=== PATIENT | female | born 1980 | race Caucasian/White ===

== ENCOUNTER 2017-01-14 20:26 | Emergency (ER) | payer OTHER ==
[~2017-01-14] VITALS: Ht 162.6 cm; Wt 60.0 kg
[~2017-01-14 20:26] MED LIST: ADVAIR 250/501 DISK; AMITRIPTYLINE H10 MG PO; ANTI-DIARRHEAL2 M2 PO; BACLOFEN10 MG PO; BACLOFEN20 MG PO; BACTRIM,SEPT1 TABLET PO; BENZONATATE200 MG PO; BETASERON0.3 MG IM; BETHANECHOL CHL10 MG PO; BETHANECHOL CHL25 MG PO; CELEXA10 MG PO; CITALOPRAM HBR10 MG PO; CLINDAMYCIN HC300 MG PO; CYCLOBENZAPRINE10 MG PO; DELSYM30 MG/5 M1 PO; DEPAKENE250 MG/5 M PO; DICYCLOMINE HCL20 MG PO; DITROPAN5 MG PO; DOXYCYCLINE HY100 MG PO; ELAVIL10 MG PO; FLAGYL500 MG PO; FUROSEMIDE40 MG PO; HYDROXYZINE HCL50 MG PO; IBUPROFEN PO; IBUPROFEN800 MG; K-DUR20 MEQ PO; K-SOL20 MEQ/15 PO; KEPPRA100 MG/1 M PO; KEPPRA500 MG PO; KEPPRA750 MG PO; LEVETIRACE100 MG/1 M PO; LEVETIRACETAM250 MG PO; LEVETIRACETAM500 MG PO; LEVETIRACETAM750 MG PO; LYRICA25 MG PO; LYRICA50 MG PO; LYRICA75 MG PO; MOTRIN800 MG PO; NAPROSYN500 MG PO; NAPROXEN500 MG PO; NOHOMEMEDS; NORCO 5/3251 TABLET PO; OMEPRAZOLE20 M2; OMEPRAZOLE20 M2 PO; OMEPRAZOLE40 M1 PO; OSTEO BI-FLEX1 EAC1 PO; OSTEO BI-FLEX1 EAC2 PO; PERCOCET 5/31 TABLET PO; PHENAZOPYRIDIN100 MG PO; POTASSIUM20 MEQ/11 PO; PREDNISONE20 MG; PRILOSEC OTC20 MG PO; PRILOSEC20 MG PO; PROAIR HFA8.5 GM; PROAIR HFA8.5 GM IH; SERTRALINE HCL100 MG PO; SERTRALINE HCL50 MG PO; TECFIDERA240 MG PO; TESSALON PERLE100 MG PO; TOPAMAX25 MG PO; TOPIRAMATE25 MG PO; TRAMADOL HCL50 MG PO; TRAZODONE HCL50 MG PO; ULTRAM50 MG PO; UNABLEOBTAIN; URECHOLINE25 MG PO; VALPROIC A250 MG/5 M PO; VENTOLIN HFA18 GM IH; ZITHROMAX Z-PA250 MG PO; ZOFRAN4 MG PO; ZOLOFT100 MG PO
[2017-01-14 23:26] LABS: HEMATOCRIT 38.5 % (36.0-46.0); MCH 28.7 PG (29.0-34.0); MCV 87.1 FL (83-99); MEAN PLAT.VOLUME 11.9 uM^3 (9.5-12.4); NRBC (%) 0.1 /100 WBC (0-0); PLATELET COUNT 214 K/uL (156-360); RBC DIS.WIDTH-CV 13.3 % (11.8-14.6); RBC DIS.WIDTH-SD 42.2 % (39-53); RED BLOOD COUNT 4.42 M/uL (3.80-5.20); WHITE BLOOD COUNT 13.6 K/uL (4.1-10.2)
[2017-01-14 23:36] LABS: CHLORIDE 111 mEq/L (99-109); POTASSIUM 3.7 mEq/L (3.7-5.4); SODIUM 139 mEq/L (136-147)
[2017-01-14 23:37] LABS: GLUCOSE 125 mg/dL (70-99)
[2017-01-14 23:39] LABS: ANION GAP 7 MEQ/L (2-14)
[2017-01-14 23:41] LABS: GFR ESTIMATE (CALCULATED) > 59 mL/min/; SERUM ETHYL ALCOHOL < 10 mg/dL
[2017-01-14 23:42] LABS: UREA NITROGEN (BUN) 13 mg/dL (9-23)
[2017-01-14 23:44] LABS: CREATINE KINASE 25 IU/L (1-294); TOTAL CK 25 IU/L (1-294)
[2017-01-14 23:51] LABS: CK-MB 0.6 ng/mL (0.0-4.9)
[2017-01-15 02:22] VITALS: BP 91/64
== END 2017-01-15 02:22 | disposition home or self-care (01) ==
LOC: EME 20:26 → EXP 20:26
PROVIDERS: Emergency Medicine
DX: F41.9 Anxiety disorder, unspecified (principal); D72.829 Elevated white blood cell count, unspecified; E11.9 Type 2 diabetes mellitus without complications; G35 Multiple sclerosis; F17.210 Nicotine dependence, cigarettes, uncomplicated; Z88.0 Allergy status to penicillin; Z88.8 Allergy status to other drugs, medicaments and biological substances
CPT/HCPCS: 80048; 80164; 81003; 82550; 82553; 85027; 99281; 99283; G0480

== ENCOUNTER 2017-01-17 12:52 | Emergency (ER) | payer OTHER ==
[~2017-01-17] VITALS: Ht 162.6 cm; Wt 59.4 kg
[2017-01-17 14:17] VITALS: BP 90/61
== END 2017-01-17 14:19 | disposition home or self-care (01) ==
LOC: EME 12:52
DX: F43.20 Adjustment disorder, unspecified (principal); Z76.0 Encounter for issue of repeat prescription; J45.909 Unspecified asthma, uncomplicated; G35 Multiple sclerosis; F17.200 Nicotine dependence, unspecified, uncomplicated; Z85.43 Personal history of malignant neoplasm of ovary; Z88.0 Allergy status to penicillin
CPT/HCPCS: 99281; 99283

== ENCOUNTER 2017-02-16 13:21 | Emergency (ER) | payer OTHER ==
[~2017-02-16] VITALS: Ht 160 cm; Wt 64.0 kg
[~2017-02-16 13:21] MED LIST changes: +CIPRO500 MG PO; -LEVETIRACETAM250 MG PO; +PREDNISONE10 MG PO
[2017-02-16 17:26] VITALS: BP 95/60
== END 2017-02-16 17:27 | disposition home or self-care (01) ==
LOC: EME 13:21
DX: G35 Multiple sclerosis (principal); Z75.1 Person awaiting admission to adequate facility elsewhere; Z74.2 Need for assistance at home and no other household member able to render care; J45.909 Unspecified asthma, uncomplicated; G40.909 Epilepsy, unspecified, not intractable, without status epilepticus; Z87.440 Personal history of urinary (tract) infections; Z85.43 Personal history of malignant neoplasm of ovary; Z88.0 Allergy status to penicillin; Z88.6 Allergy status to analgesic agent; Z72.0 Tobacco use
CPT/HCPCS: 99281; 99282

== ENCOUNTER 2017-03-10 00:14 | Observation (INO) | payer OTHER ==
[~2017-03-10] VITALS: Ht 160 cm; Wt 61.5 kg
[~2017-03-10 00:14] MED LIST changes: -AMITRIPTYLINE H10 MG PO; -DICYCLOMINE HCL20 MG PO; -DITROPAN5 MG PO; -VALPROIC A250 MG/5 M PO; -VENTOLIN HFA18 GM IH
[2017-03-10 00:50] LABS: EOSINOPHIL (%) 4.8 % (0-5); EOSINOPHIL COUNT 0.4 K/uL (0-0.3); HEMATOCRIT 34.6 % (36.0-46.0); IMMATURE GRANULOCYTE (%) 0.6 % (0.0-0.7); IMMATURE GRANULOCYTE COUNT 0.1 K/uL; INSTRUMENT ABS NEUTROPHIL CT 4.7 K/uL; LYMPHOCYTE COUNT 3.1 K/uL (1.0-2.8); MCH 29.3 PG (29.0-34.0); MCHC 33.5 G/DL (30.0-36.0); MCV 87.4 FL (83-99); MEAN PLAT.VOLUME 11.4 uM^3 (9.5-12.4); MONOCYTE (%) 6.5 % (3-12); MONOCYTE COUNT 0.6 K/uL (0-0.8); NEUTROPHIL (%) 52.6 % (45-76); NEUTROPHIL COUNT 4.7 K/uL (1.8-6.4); NRBC (%) 0.5 /100 WBC (0-0); PLATELET COUNT 164 K/uL (156-360); RBC DIS.WIDTH-CV 13.4 % (11.8-14.6); RED BLOOD COUNT 3.96 M/uL (3.80-5.20); WHITE BLOOD COUNT 8.9 K/uL (4.1-10.2)
[2017-03-10 00:56] LABS: PROTHROMBIN TIME 11.6 SEC (10.2-12.9)
[2017-03-10 00:58] LABS: PTT 27.4 SEC (25-37)
[2017-03-10 01:00] LABS: CHLORIDE 109 mEq/L (99-109); POTASSIUM 3.5 mEq/L (3.7-5.4); SODIUM 142 mEq/L (136-147)
[2017-03-10 01:02] LABS: GLUCOSE 169 mg/dL (70-99)
[2017-03-10 01:03] LABS: ANION GAP 12 MEQ/L (2-14)
[2017-03-10 01:04] LABS: TOTAL BILIRUBIN 0.3 mg/dL (0.0-1.0)
[2017-03-10 01:05] LABS: ALKALINE PHOSPHATASE 100 IU/L (3-129)
[2017-03-10 01:06] LABS: GFR ESTIMATE (CALCULATED) > 59 mL/min/
[2017-03-10 01:07] LABS: UREA NITROGEN (BUN) 14 mg/dL (9-23)
[2017-03-10 06:43] LABS: ADD MIUA? YES; BILIRUBIN NEGATIVE; BLOOD LARGE; COLOR AMBER ((YELLOW)); GLUCOSE (STRIP) NEGATIVE; KETONES 5; LEUKOCYTES NEGATIVE; NITRITE NEGATIVE; PROTEIN (STRIP) 100; UROBILINOGEN 0.2 MG/DL (0.2-1.0)
[2017-03-10 07:02] LABS: AMORPHOUS URATES CRYSTALS 4+; BACTERIA 2+ /HPF; CASTS NONE SEEN /LPF; CRYSTALS PRESENT; EPITHELIAL CELLS 1+ /HPF; MUCUS NONE SEEN /LPF; UCUL ADDED? YES; WHITE BLOOD CELLS 0-5 /HPF (0-5)
[2017-03-10 07:03] LABS: BASE EXCESS -3.6 mEq/L (-3 to +3); BICARBONATE 21.5 mEq/L (22-26); CARBOXY HGB 2.3 % (0-5); METHEMOGLOBIN 0.9 % (0-1.5); PCO2 38 mm Hg (35-45); PO2 112 mm Hg (80-100); pH 7.36 (7.35-7.45)
[2017-03-10 07:04] LABS: COMMENTS - BLOOD GASES A+C+; DEVICE ROOM AIR; FI02 21 %; SITE RR; TOTAL RESP RATE 18 resp/min
[2017-03-10 07:50] LABS: AMPHETAMINE NEGATIVE (500 ng/mL); BARBITURATES NEGATIVE (200 ng/mL); BENZODIAZEPINES NEGATIVE (150 ng/mL); COCAINE NEGATIVE (150 ng/mL); INTERNAL CONTROLS VALID? YES; METHADONE NEGATIVE (200 ng/mL); METHAMPHETAMINE PRESUMPTIVE POSITIVE (500 ng/mL); OPIATES (MORPHINE) NEGATIVE (100 ng/mL); OXYCODONE NEGATIVE (100 ng/mL); PHENCYCLIDINE NEGATIVE (25 ng/mL); PROPOXYPHENE NEGATIVE (300 ng/mL); THC CANNABINOIDS NEGATIVE (50 ng/mL); TRICYCLIC ANTIDEPRESSANTS PRESUMPTIVE POSITIVE (300 ng/mL)
[2017-03-10] MEDS ORDERED: AMITRIPTYLINE H10 MG PO (15:30)
[2017-03-10] MEDS ORDERED: BETHANECHOL CHL25 MG PO (15:30)
[2017-03-10] MEDS ORDERED: DICYCLOMINE HCL20 MG PO (15:30)
[2017-03-10] MEDS ORDERED: TOPIRAMATE25 MG PO (15:30)
[2017-03-10] MEDS ORDERED: KEPPRA500 MG PO (15:30)
[2017-03-10] MEDS ORDERED: VENTOLIN HFA18 GM IH (15:30)
[2017-03-10] MEDS ORDERED: DITROPAN5 MG PO (15:30)
[2017-03-10] MEDS ORDERED: TRAZODONE HCL50 MG PO (15:30)
[2017-03-10] MEDS ORDERED: LOPERAMIDE2 M1 PO (15:32)
[2017-03-10] MEDS ORDERED: VALPROIC A250 MG/5 M PO (15:44)
[2017-03-10 19:04] VITALS: BP 104/56
[2017-03-10 23:25] VITALS: BP 96/60
[2017-03-11 03:43] VITALS: BP 92/58
[2017-03-11 05:19] LABS: MCH 29.3 PG (29.0-34.0); MCHC 32.4 G/DL (30.0-36.0); MCV 90.4 FL (83-99); MEAN PLAT.VOLUME 11.6 uM^3 (9.5-12.4); NRBC (%) 0.8 /100 WBC (0-0); PLATELET COUNT 152 K/uL (156-360); RBC DIS.WIDTH-CV 13.9 % (11.8-14.6); RED BLOOD COUNT 3.76 M/uL (3.80-5.20); WHITE BLOOD COUNT 7.2 K/uL (4.1-10.2)
[2017-03-11 05:58] LABS: ANION GAP 3 MEQ/L (2-14); CHLORIDE 117 MEQ/L (99-109); GFR ESTIMATE (CALCULATED) > 59 mL/min/; SAMPLE HEMOLYSIS CHECK 1; SAMPLE ICTERIC CHECK 0; SAMPLE LIPEMIA CHECK 0; SODIUM 143 MEQ/L (136-147); UREA NITROGEN (BUN) 14 mg/dL (9-23)
[2017-03-11 06:03] LABS: GLUCOSE 107 mg/dL (70-99); POTASSIUM 5.3 MEQ/L (3.7-5.4)
[2017-03-11 07:30] VITALS: BP 102/55
[2017-03-11 11:50] VITALS: BP 91/52
[2017-03-11 16:09] VITALS: BP 110/60
[2017-03-11 19:41] VITALS: BP 99/53
[2017-03-11 23:39] VITALS: BP 93/50
[2017-03-12 06:14] LABS: BASOPHIL COUNT 0.1 K/uL (0-0.1); EOSINOPHIL (%) 2.3 % (0-5); EOSINOPHIL COUNT 0.2 K/uL (0-0.3); HEMATOCRIT 33.6 % (36.0-46.0); IMMATURE GRANULOCYTE (%) 0.6 % (0.0-0.7); INSTRUMENT ABS NEUTROPHIL CT 3.3 K/uL; LYMPHOCYTE COUNT 2.9 K/uL (1.0-2.8); MCH 28.7 PG (29.0-34.0); MCHC 31.3 G/DL (30.0-36.0); MCV 91.8 FL (83-99); MEAN PLAT.VOLUME 12.3 uM^3 (9.5-12.4); MONOCYTE (%) 5.8 % (3-12); MONOCYTE COUNT 0.4 K/uL (0-0.8); NEUTROPHIL (%) 48.1 % (45-76); NEUTROPHIL COUNT 3.3 K/uL (1.8-6.4); NRBC (%) 0.9 /100 WBC (0-0); PLATELET COUNT 149 K/uL (156-360); RBC DIS.WIDTH-CV 13.9 % (11.8-14.6); RBC DIS.WIDTH-SD 47.1 % (39-53); RED BLOOD COUNT 3.66 M/uL (3.80-5.20); WHITE BLOOD COUNT 6.9 K/uL (4.1-10.2)
[2017-03-12 06:38] LABS: ALKALINE PHOSPHATASE 75 IU/L (3-129); ANION GAP 5 MEQ/L (2-14); CHLORIDE 116 MEQ/L (99-109); GFR ESTIMATE (CALCULATED) > 59 mL/min/; POTASSIUM 5.3 MEQ/L (3.7-5.4); SAMPLE HEMOLYSIS CHECK 0; SAMPLE ICTERIC CHECK 0; SAMPLE LIPEMIA CHECK 0; SODIUM 145 MEQ/L (136-147); TOTAL BILIRUBIN 0.3 MG/DL (0.0-1.0); UREA NITROGEN (BUN) 10 mg/dL (9-23)
[2017-03-12 06:40] LABS: GLUCOSE 77 mg/dL (70-99)
[2017-03-12 07:49] VITALS: BP 97/60
[2017-03-12 08:03] LABS: ERTH.SED.RATE < 1 MM/HR (0-20)
[2017-03-12 16:24] VITALS: BP 92/53
== END 2017-03-12 17:40 ==
LOC: EME 00:14 → EDOF 06:31 → 5EAST 06:31 → CANRESERV 06:38 → ENRESERV 06:38 → CANRESERV 07:03 → ENRESERV 07:03 → EDOF 07:13 → 5EAST 07:13 → CANRESERV 07:14 → ENRESERV 07:14 → EDOF 14:41 → ENRESERV 14:53 → 5EAST 17:03
PROVIDERS: Emergency Medicine; Nurse Practitioner Adult Health; Physician Assistant
DX: R51 Headache (principal); G35 Multiple sclerosis; R53.83 Other fatigue; R04.0 Epistaxis; M79.605 Pain in left leg; M79.604 Pain in right leg; H53.8 Other visual disturbances; H53.149 Visual discomfort, unspecified; Z85.43 Personal history of malignant neoplasm of ovary; J45.909 Unspecified asthma, uncomplicated; G40.909 Epilepsy, unspecified, not intractable, without status epilepticus; R27.8 Other lack of coordination; E87.6 Hypokalemia; R20.0 Anesthesia of skin; Z87.440 Personal history of urinary (tract) infections; F17.210 Nicotine dependence, cigarettes, uncomplicated; R62.59 Other lack of expected normal physiological development in childhood; Z90.49 Acquired absence of other specified parts of digestive tract; Z88.0 Allergy status to penicillin; Z88.5 Allergy status to narcotic agent; Z79.52 Long term (current) use of systemic steroids
CPT/HCPCS: 36600; 70450; 70553; 80048; 80053; 80164; 80306 90; 81003; 82607; 82746; 82803; 84443; 85025; 85027; 85610; 85651; 85730; 87086; 99202; 99281; 99285; G0378; G8978 GP CJ; G8979 GP CI; G8987 GO CJ; G8988 CI; J0780; J1200; J1630; J1650; J1885; J1953; J2765; J3010; J3480; J7030; J7050; Q0169

== ENCOUNTER 2017-03-15 01:48 | Emergency (ER) | payer OTHER ==
[~2017-03-15] VITALS: Ht 160 cm; Wt 55.0 kg
[~2017-03-15 01:48] MED LIST changes: +AMITRIPTYLINE H10 MG PO; +DICYCLOMINE HCL20 MG PO; +DITROPAN5 MG PO; +LOPERAMIDE2 M1 PO; +VALPROIC A250 MG/5 M PO; +VENTOLIN HFA18 GM IH
[2017-03-15 05:22] VITALS: BP 113/58
== END 2017-03-15 05:32 ==
LOC: EME → EDBD 01:48 → EME 05:32
DX: S70.01XA Contusion of right hip, initial encounter (principal); W18.39XA Other fall on same level, initial encounter; G35 Multiple sclerosis; J45.909 Unspecified asthma, uncomplicated; Z85.43 Personal history of malignant neoplasm of ovary; F17.200 Nicotine dependence, unspecified, uncomplicated
CPT/HCPCS: 73502; 99281; 99285

== ENCOUNTER 2017-03-30 15:20 | Inpatient (IN) | payer OTHER ==
[~2017-03-30] VITALS: Ht 160 cm; Wt 62.0 kg
[~2017-03-30 15:20] MED LIST changes: +DEPAKENE250 MG PO; -VALPROIC A250 MG/5 M PO
[2017-03-30 19:44] LABS: HEMATOCRIT 38.8 % (36.0-46.0); MCH 29.6 PG (29.0-34.0); MCHC 33.5 G/DL (30.0-36.0); MCV 88.4 FL (83-99); NRBC (%) 0.4 /100 WBC (0-0); PLATELET COUNT 149 K/uL (156-360); RBC DIS.WIDTH-CV 13.5 % (11.8-14.6); RBC DIS.WIDTH-SD 43.8 % (39-53); RED BLOOD COUNT 4.39 M/uL (3.80-5.20); WHITE BLOOD COUNT 9.7 K/uL (4.1-10.2)
[2017-03-30 19:58] LABS: CHLORIDE 110 mEq/L (99-109); POTASSIUM 4.1 mEq/L (3.7-5.4); SODIUM 144 mEq/L (136-147)
[2017-03-30 20:00] LABS: GLUCOSE 95 mg/dL (70-99)
[2017-03-30 20:04] LABS: CREATININE 0.8 mg/dL (0.6-1.3); GFR ESTIMATE (CALCULATED) > 59 mL/min/
[2017-03-30 20:05] LABS: UREA NITROGEN (BUN) 14 mg/dL (9-23)
[2017-03-30 22:58] LABS: APPEARANCE CLOUDY ((CLEAR)); BILIRUBIN SMALL; BLOOD NEGATIVE; COLOR AMBER ((YELLOW)); GLUCOSE (STRIP) NEGATIVE; KETONES 5; LEUKOCYTES NEGATIVE; NITRITE NEGATIVE; PROTEIN (STRIP) 100
[2017-03-31 00:07] LABS: SPECIFIC GRAVITY 1.049 (1.000-1.030)
[2017-03-31 00:16] LABS: BACTERIA 4+ /HPF; EPITHELIAL CELLS 4+ /HPF; MUCUS 3+ /LPF; RED BLOOD CELLS 0-5 /HPF (0-5); UCUL ADDED? YES; WHITE BLOOD CELLS 0-5 /HPF (0-5)
[2017-03-31 00:40] VITALS: BP 97/60
[2017-03-31 07:36] VITALS: BP 106/61
[2017-03-31 16:10] VITALS: BP 112/63
[2017-03-31 23:34] VITALS: BP 116/68
[2017-04-01 07:52] VITALS: BP 78/55
[2017-04-01 09:21] VITALS: BP 120/75
[2017-04-01 15:51] VITALS: BP 122/72
[2017-04-01 23:31] VITALS: BP 85/50
[2017-04-02 00:34] VITALS: BP 87/54
[2017-04-02 07:33] VITALS: BP 118/72
[2017-04-02 15:58] VITALS: BP 121/72
[2017-04-03] VITALS: BP 84/55
[2017-04-03 07:00] VITALS: BP 93/69
[2017-04-03 16:07] VITALS: BP 100/57
[2017-04-04 00:11] VITALS: BP 112/62
[2017-04-04 07:25] VITALS: BP 87/62
[2017-04-04 07:27] VITALS: BP 74/50
[2017-04-05] VITALS: BP 82/50
[2017-04-05 07:20] VITALS: BP 103/52
[2017-04-05 15:13] VITALS: BP 101/54
[2017-04-05 23:42] VITALS: BP 89/52
[2017-04-06 07:49] VITALS: BP 98/63
[2017-04-06 16:09] VITALS: BP 90/58
[2017-04-06 23:27] VITALS: BP 121/74
[2017-04-07 08:04] VITALS: BP 99/65
[2017-04-07 15:53] VITALS: BP 90/54
[2017-04-08 00:04] VITALS: BP 132/59
[2017-04-08 07:14] VITALS: BP 90/53
[2017-04-08 15:08] VITALS: BP 104/61
[2017-04-09 00:03] VITALS: BP 88/61
[2017-04-09 07:44] VITALS: BP 86/48
[2017-04-09 15:27] VITALS: BP 86/56
[2017-04-10 00:11] VITALS: BP 88/60
[2017-04-10] MEDS ORDERED: DEPAKENE250 MG PO (12:48)
== END 2017-04-10 14:16 | disposition home or self-care (01) | DRG 59 ==
LOC: EME 15:20 → EDOF 22:40 → 5SOUTH 22:40 → ENRESERV 22:45 → 5SOUTH 03-31 00:17
PROVIDERS: Physician Assistant
DX: G35 Multiple sclerosis (principal); F33.9 Major depressive disorder, recurrent, unspecified; R63.3 Feeding difficulties; K58.9 Irritable bowel syndrome, unspecified; K21.9 Gastro-esophageal reflux disease without esophagitis; G43.909 Migraine, unspecified, not intractable, without status migrainosus; J45.909 Unspecified asthma, uncomplicated; G40.909 Epilepsy, unspecified, not intractable, without status epilepticus; G11.8 Other hereditary ataxias; F41.9 Anxiety disorder, unspecified; F17.210 Nicotine dependence, cigarettes, uncomplicated; N32.89 Other specified disorders of bladder; G25.2 Other specified forms of tremor; Z91.14 Patient's other noncompliance with medication regimen; Z91.19 Patient's noncompliance with other medical treatment and regimen; Z88.0 Allergy status to penicillin; Z88.5 Allergy status to narcotic agent; Z79.51 Long term (current) use of inhaled steroids; Z82.49 Family history of ischemic heart disease and other diseases of the circulatory system; Z80.9 Family history of malignant neoplasm, unspecified; Z83.3 Family history of diabetes mellitus
CPT/HCPCS: 80048; 81003; 85027; 87086; 94760; 97530 GO; 97530 GP; 99202; 99281; 99285; G0378; G8978 GP CJ; G8979 GP CI; G8987 GO CI; G8988 GO CH; J1650; J2060

== ENCOUNTER 2017-05-23 11:22 | Inpatient (IN) | payer OTHER ==
[~2017-05-23] VITALS: Ht 160 cm; Wt 71.2 kg
[~2017-05-23 11:22] MED LIST changes: -DITROPAN5 MG PO; +OXYBUTYNIN CHLOR5 M1 PO
[2017-05-23 12:10] LABS: HEMATOCRIT 37.6 % (36.0-46.0); HEMOGLOBIN 12.5 G/DL (11.9-15.5); MCH 30.3 PG (29.0-34.0); MCHC 33.2 G/DL (30.0-36.0); NRBC (%) 0.3 /100 WBC (0-0); PLATELET COUNT 131 K/uL (156-360); RBC DIS.WIDTH-SD 46.8 % (39-53); RED BLOOD COUNT 4.13 M/uL (3.80-5.20); WHITE BLOOD COUNT 6.8 K/uL (4.1-10.2)
[2017-05-23 12:42] LABS: CHLORIDE 110 MEQ/L (99-109); SODIUM 142 MEQ/L (136-147)
[2017-05-23 12:47] LABS: CREATININE 0.8 MG/DL (0.6-1.3); GFR ESTIMATE (CALCULATED) > 59 mL/min/; GLUCOSE 72 mg/dL (70-99); UREA NITROGEN (BUN) 16 mg/dL (9-23)
[2017-05-23 15:18] LABS: APPEARANCE CLOUDY ((CLEAR)); BILIRUBIN NEGATIVE; BLOOD NEGATIVE; COLOR YELLOW ((YELLOW)); GLUCOSE (STRIP) NEGATIVE; KETONES NEGATIVE; LEUKOCYTES NEGATIVE; NITRITE NEGATIVE; PROTEIN (STRIP) 30; SPECIFIC GRAVITY 1.024 (1.000-1.030); UROBILINOGEN 0.2 MG/DL (0.2-1.0)
[2017-05-23 15:50] LABS: AMORPHOUS PHOSPHATE CRYSTALS 1+; BACTERIA 2+ /HPF; EPITHELIAL CELLS 1+ /HPF; MUCUS RARE /LPF; RED BLOOD CELLS 0-5 /HPF (0-5); TRIPLE PHOSPHATE CRYSTALS 1+ /HPF; WHITE BLOOD CELLS 0-5 /HPF (0-5)
[2017-05-23 16:40] VITALS: BP 93/52
[2017-05-23 23:58] VITALS: BP 95/58
[2017-05-24 06:37] LABS: HEMATOCRIT 36.8 % (36.0-46.0); HEMOGLOBIN 11.9 G/DL (11.9-15.5); MCH 29.3 PG (29.0-34.0); MCHC 32.3 G/DL (30.0-36.0); MCV 90.6 FL (83-99); NRBC (%) 0.5 /100 WBC (0-0); PLATELET COUNT 137 K/uL (156-360); RBC DIS.WIDTH-CV 13.6 % (11.8-14.6); RBC DIS.WIDTH-SD 45.8 % (39-53); RED BLOOD COUNT 4.06 M/uL (3.80-5.20); WHITE BLOOD COUNT 7.5 K/uL (4.1-10.2)
[2017-05-24 06:51] LABS: CHLORIDE 110 MEQ/L (99-109); CREATININE 0.9 MG/DL (0.6-1.3); GFR ESTIMATE (CALCULATED) > 59 mL/min/; GLUCOSE 76 mg/dL (70-99); POTASSIUM 4.6 MEQ/L (3.7-5.4); SODIUM 142 MEQ/L (136-147); UREA NITROGEN (BUN) 14 mg/dL (9-23)
[2017-05-24 08:15] VITALS: BP 90/51
[2017-05-24 15:37] VITALS: BP 106/50
[2017-05-24 23:39] VITALS: BP 92/51
[2017-05-25 06:59] VITALS: BP 96/52
[2017-05-25] MEDS ORDERED: VALPROIC ACID250 MG PO (15:22)
[2017-05-25 16:00] VITALS: BP 90/58
[2017-05-26 06:42] LABS: HEMOGLOBIN 11.6 G/DL (11.9-15.5); MCH 30.1 PG (29.0-34.0); MCHC 33.1 G/DL (30.0-36.0); MCV 90.9 FL (83-99); NRBC (%) 0.5 /100 WBC (0-0); PLATELET COUNT 116 K/uL (156-360); RBC DIS.WIDTH-CV 13.9 % (11.8-14.6); RBC DIS.WIDTH-SD 46.7 % (39-53); RED BLOOD COUNT 3.85 M/uL (3.80-5.20); WHITE BLOOD COUNT 6.3 K/uL (4.1-10.2)
[2017-05-26 07:00] LABS: CHLORIDE 110 MEQ/L (99-109); CREATININE 0.9 MG/DL (0.6-1.3); GFR ESTIMATE (CALCULATED) > 59 mL/min/; GLUCOSE 83 mg/dL (70-99); POTASSIUM 4.3 MEQ/L (3.7-5.4); SODIUM 141 MEQ/L (136-147); UREA NITROGEN (BUN) 16 mg/dL (9-23)
[2017-05-26 07:13] VITALS: BP 94/46
[2017-05-26] MEDS ORDERED: IBUPROFEN400 MG PO (15:01)
[2017-05-26 16:22] VITALS: BP 92/51
== END 2017-05-26 17:01 | DRG 60 ==
LOC: EME 11:22 → 5EAST 13:47 → EDOF 13:47 → ENRESERV 13:49 → 5EAST 15:16
PROVIDERS: Emergency Medicine; Hospitalist; Internal Medicine
DX: G35 Multiple sclerosis (principal); D69.6 Thrombocytopenia, unspecified; G40.909 Epilepsy, unspecified, not intractable, without status epilepticus; G43.909 Migraine, unspecified, not intractable, without status migrainosus; J45.909 Unspecified asthma, uncomplicated; K21.9 Gastro-esophageal reflux disease without esophagitis; R32 Unspecified urinary incontinence; Z91.19 Patient's noncompliance with other medical treatment and regimen; F10.11 Alcohol abuse, in remission; F32.9 Major depressive disorder, single episode, unspecified; F43.22 Adjustment disorder with anxiety; F17.210 Nicotine dependence, cigarettes, uncomplicated; Z82.49 Family history of ischemic heart disease and other diseases of the circulatory system; Z83.3 Family history of diabetes mellitus; Z85.43 Personal history of malignant neoplasm of ovary
CPT/HCPCS: 71045; 80048; 81003; 85027; 99281; 99284; J1650

== ENCOUNTER 2017-10-24 09:39 | Emergency (ER) | payer OTHER ==
[~2017-10-24] VITALS: Ht 167.6 cm; Wt 73.4 kg
[~2017-10-24 09:39] MED LIST changes: +IBUPROFEN400 MG PO; +VALPROIC ACID250 MG PO
[2017-10-24 09:46] VITALS: BP 94/68
[2017-10-24 11:32] LABS: BASOPHIL (%) 0.5 % (0-1); EOSINOPHIL (%) 2.5 % (0-5); EOSINOPHIL COUNT 0.2 K/uL (0-0.3); HEMATOCRIT 39.6 % (36.0-46.0); HEMOGLOBIN 13.2 G/DL (11.9-15.5); IMMATURE GRANULOCYTE (%) 0.2 % (0.0-0.7); LYMPHOCYTE (%) 44.2 % (15-42); LYMPHOCYTE COUNT 3.7 K/uL (1.0-2.8); MCH 29.1 PG (29.0-34.0); MCHC 33.3 G/DL (30.0-36.0); MCV 87.2 FL (83-99); MONOCYTE (%) 5.7 % (3-12); MONOCYTE COUNT 0.5 K/uL (0-0.8); NEUTROPHIL (%) 46.9 % (45-76); NRBC (%) 0.2 /100 WBC (0-0); PLATELET COUNT 134 K/uL (156-360); RBC DIS.WIDTH-CV 13.1 % (11.8-14.6); RED BLOOD COUNT 4.54 M/uL (3.80-5.20); WHITE BLOOD COUNT 8.5 K/uL (4.1-10.2)
[2017-10-24 11:43] LABS: CHLORIDE 113 mEq/L (99-109); POTASSIUM 3.9 mEq/L (3.7-5.4); SODIUM 142 mEq/L (136-147)
[2017-10-24 11:44] LABS: GLUCOSE 76 mg/dL (70-99)
[2017-10-24 11:48] LABS: CREATININE 0.8 mg/dL (0.6-1.3); GFR ESTIMATE (CALCULATED) > 59 mL/min/
[2017-10-24 11:49] LABS: UREA NITROGEN (BUN) 8 mg/dL (9-23)
[2017-10-24] MEDS ORDERED: PERCOCET 5/31 TABLET PO (12:16)
== END 2017-10-24 12:54 | disposition home or self-care (01) ==
LOC: EME → EDSEX 09:39 → EDBD 09:39 → EME 09:39
PROVIDERS: Emergency Medicine
DX: S80.02XA Contusion of left knee, initial encounter (principal); S80.01XA Contusion of right knee, initial encounter; W01.0XXA Fall on same level from slipping, tripping and stumbling without subsequent striking against object, initial encounter; G35 Multiple sclerosis; Z88.5 Allergy status to narcotic agent; Z88.0 Allergy status to penicillin
CPT/HCPCS: 73564; 80048; 81003; 85025; 99281; 99285

== ENCOUNTER 2017-11-16 03:45 | Emergency (ER) | payer OTHER ==
[~2017-11-16] VITALS: Ht 167.6 cm; Wt 73.4 kg
[2017-11-16 05:45] LABS: APPEARANCE CLEAR ((CLEAR)); BILIRUBIN NEGATIVE; BLOOD NEGATIVE; COLOR YELLOW ((YELLOW)); GLUCOSE (STRIP) NEGATIVE; KETONES NEGATIVE; LEUKOCYTES NEGATIVE; NITRITE NEGATIVE; PROTEIN (STRIP) 30; SPECIFIC GRAVITY 1.019 (1.000-1.030); UCUL ADDED? NO
[2017-11-16 05:50] LABS: HEMATOCRIT 35.7 % (36.0-46.0); MCH 29.6 PG (29.0-34.0); MCHC 33.6 G/DL (30.0-36.0); MCV 88.1 FL (83-99); NRBC (%) 0.4 /100 WBC (0-0); PLATELET COUNT 126 K/uL (156-360); RBC DIS.WIDTH-CV 13.6 % (11.8-14.6); RBC DIS.WIDTH-SD 44.2 % (39-53); RED BLOOD COUNT 4.05 M/uL (3.80-5.20); WHITE BLOOD COUNT 9.1 K/uL (4.1-10.2)
[2017-11-16 06:24] LABS: ALBUMIN 3.8 g/dL (3.2-4.8); CHLORIDE 106 mEq/L (99-109); POTASSIUM 3.9 mEq/L (3.7-5.4); SODIUM 138 mEq/L (136-147)
[2017-11-16 06:26] LABS: GLUCOSE 70 mg/dL (70-99)
[2017-11-16 06:28] LABS: TOTAL BILIRUBIN 0.4 mg/dL (0.0-1.0)
[2017-11-16 06:30] LABS: ALKALINE PHOSPHATASE 101 IU/L (3-129); CREATININE 0.8 mg/dL (0.6-1.3); GFR ESTIMATE (CALCULATED) > 59 mL/min/
[2017-11-16 06:31] LABS: UREA NITROGEN (BUN) 11 mg/dL (9-23)
[2017-11-16 06:32] LABS: AST (GOT) 37 IU/L (2-34)
[2017-11-16 06:33] LABS: ALT (GPT) 33 IU/L (3-49); LIPASE 8 U/L (1.0-51.0)
[2017-11-16 06:58] LABS: ERTH.SED.RATE < 1 MM/HR (0-20)
[2017-11-16 07:05] LABS: C-REACTIVE PROTEIN < 1.0 MG/L (0-10)
[2017-11-16] MEDS ORDERED: PERCOCET 5/31 TABLET PO (07:20)
[2017-11-16 07:57] VITALS: BP 84/62
== END 2017-11-16 08:04 | disposition home or self-care (01) ==
LOC: EME → EDBD 03:45 → EME 03:45
PROVIDERS: Emergency Medicine
DX: K29.70 Gastritis, unspecified, without bleeding (principal); M54.5 Low back pain; K21.9 Gastro-esophageal reflux disease without esophagitis; E16.2 Hypoglycemia, unspecified; J45.909 Unspecified asthma, uncomplicated; G35 Multiple sclerosis; R56.9 Unspecified convulsions; I95.89 Other hypotension; F17.200 Nicotine dependence, unspecified, uncomplicated; Z86.2 Personal history of diseases of the blood and blood-forming organs and certain disorders involving the immune mechanism; Z85.9 Personal history of malignant neoplasm, unspecified; Z90.49 Acquired absence of other specified parts of digestive tract; Z88.5 Allergy status to narcotic agent; Z88.0 Allergy status to penicillin
CPT/HCPCS: 80053; 81003; 81025; 83605; 83690; 85027; 85651; 86140; 93005; 99281; 99285; J1885; J2405; J7030; S0028

== ENCOUNTER 2017-11-17 11:11 | Emergency (ER) | payer OTHER ==
[~2017-11-17] VITALS: Ht 162.6 cm; Wt 67.2 kg
[2017-11-17 12:17] VITALS: BP 98/65
[2017-11-24] MEDS ORDERED: DIARRHEA MED PO (18:28)
== END 2017-11-17 12:18 | disposition home or self-care (01) ==
LOC: EME 11:11
DX: S60.221A Contusion of right hand, initial encounter (principal); W22.01XA Walked into wall, initial encounter; Z88.5 Allergy status to narcotic agent; Z88.0 Allergy status to penicillin
CPT/HCPCS: 73130; 99281; 99283

== ENCOUNTER 2017-11-24 15:17 | Inpatient (IN) | payer OTHER ==
[~2017-11-24] VITALS: Ht 162.6 cm; Wt 140.0 kg
[2017-11-24 17:11] LABS: APPEARANCE CLEAR ((CLEAR)); BILIRUBIN NEGATIVE; BLOOD NEGATIVE; COLOR STRAW ((YELLOW)); GLUCOSE (STRIP) NEGATIVE; KETONES NEGATIVE; LEUKOCYTES NEGATIVE; NITRITE NEGATIVE; PROTEIN (STRIP) NEGATIVE; SPECIFIC GRAVITY 1.008 (1.000-1.030); UROBILINOGEN 0.2 MG/DL (0.2-1.0)
[2017-11-24 17:13] LABS: HEMATOCRIT 37.6 % (36.0-46.0); HEMOGLOBIN 12.6 G/DL (11.9-15.5); MCH 29.4 PG (29.0-34.0); MCHC 33.5 G/DL (30.0-36.0); MCV 87.9 FL (83-99); NRBC (%) 0.3 /100 WBC (0-0); PLATELET COUNT 132 K/uL (156-360); RBC DIS.WIDTH-CV 13.3 % (11.8-14.6); RBC DIS.WIDTH-SD 42.6 % (39-53); RED BLOOD COUNT 4.28 M/uL (3.80-5.20); WHITE BLOOD COUNT 8.7 K/uL (4.1-10.2)
[2017-11-24 17:22] LABS: ALBUMIN 3.5 g/dL (3.2-4.8); CHLORIDE 110 mEq/L (99-109); SODIUM 139 mEq/L (136-147)
[2017-11-24 17:25] LABS: GLUCOSE 105 mg/dL (70-99); TOTAL PROTEIN 5.5 g/dL (6.4-8.3)
[2017-11-24 17:26] LABS: TOTAL BILIRUBIN 0.3 mg/dL (0.0-1.0)
[2017-11-24 17:27] LABS: SERUM ETHYL ALCOHOL < 10 mg/dL
[2017-11-24 17:28] LABS: ALKALINE PHOSPHATASE 53 IU/L (3-129); CREATININE 0.8 mg/dL (0.6-1.3); GFR ESTIMATE (CALCULATED) > 59 mL/min/
[2017-11-24 17:29] LABS: UREA NITROGEN (BUN) 8 mg/dL (9-23)
[2017-11-24 17:30] LABS: AST (GOT) 7 IU/L (2-34)
[2017-11-24 17:31] LABS: ALT (GPT) 5 IU/L (3-49)
[2017-11-24 17:32] LABS: AMPHETAMINE NEGATIVE (500 ng/mL); BARBITURATES PRESUMPTIVE POSITIVE (200 ng/mL); BENZODIAZEPINES NEGATIVE (150 ng/mL); BUPRENORPHINE NEGATIVE (10 ng/mL); COCAINE NEGATIVE (150 ng/mL); METHADONE NEGATIVE (200 ng/mL); METHAMPHETAMINE NEGATIVE (500 ng/mL); OPIATES (MORPHINE) NEGATIVE (100 ng/mL); OXYCODONE NEGATIVE (100 ng/mL); PHENCYCLIDINE NEGATIVE (25 ng/mL); PROPOXYPHENE NEGATIVE (300 ng/mL); THC CANNABINOIDS NEGATIVE (50 ng/mL); TRICYCLIC ANTIDEPRESSANTS NEGATIVE (300 ng/mL)
[2017-11-24 17:37] LABS: QUANTITATIVE HCG < 4.0 MIU/ML
[2017-11-24 18:11] LABS: VALPROIC ACID (DEPAKOTE) 122.5 MCG/ML (50-100)
[2017-11-24] MEDS ORDERED: PERCOCET 5/31 TABLET PO (18:24)
[2017-11-24] MEDS ORDERED: PRIMIDONE50 MG PO (18:27)
[2017-11-24] MEDS ORDERED: RIZATRIPTAN10 MG PO (18:27)
[2017-11-24] MEDS ORDERED: ACIDOPHILUS1 EAC3 PO (18:28)
[2017-11-24 22:59] VITALS: BP 76/48
[2017-11-25 03:41] VITALS: BP 88/49
[2017-11-25 06:38] LABS: HEMATOCRIT 35.1 % (36.0-46.0); HEMOGLOBIN 11.7 G/DL (11.9-15.5); MCHC 33.3 G/DL (30.0-36.0); MCV 87.1 FL (83-99); NRBC (%) 0.3 /100 WBC (0-0); PLATELET COUNT 111 K/uL (156-360); RBC DIS.WIDTH-CV 13.5 % (11.8-14.6); RBC DIS.WIDTH-SD 42.7 % (39-53); RED BLOOD COUNT 4.03 M/uL (3.80-5.20); WHITE BLOOD COUNT 6.6 K/uL (4.1-10.2)
[2017-11-25 07:04] LABS: ALKALINE PHOSPHATASE 39 IU/L (3-129); ALT (GPT) 5 IU/L (3-49); AST (GOT) 7 IU/L (2-34); CHLORIDE 114 MEQ/L (99-109); CREATININE 0.7 MG/DL (0.6-1.3); DIRECT BILIRUBIN 0.1 mg/dL (0.0-0.3); GFR ESTIMATE (CALCULATED) > 59 mL/min/; GLUCOSE 93 mg/dL (70-99); POTASSIUM 3.7 MEQ/L (3.7-5.4); SODIUM 142 MEQ/L (136-147); TOTAL BILIRUBIN 0.3 MG/DL (0.0-1.0); TOTAL PROTEIN 4.6 G/DL (6.4-8.3); UREA NITROGEN (BUN) 14 mg/dL (9-23)
[2017-11-25 07:30] VITALS: BP 87/62
[2017-11-25 16:00] VITALS: BP 99/49
[2017-11-25 23:40] VITALS: BP 80/55
[2017-11-26 04:29] VITALS: BP 83/49
[2017-11-26 07:41] VITALS: BP 89/56
[2017-11-26] MEDS ORDERED: NICOTINE PATCH1 EAC1 TD (11:06)
[2017-11-26] MEDS ORDERED: MIDODRINE HCL5 MG PO (11:06)
[2017-11-26] MEDS ORDERED: KEPPRA750 MG PO (11:07)
[2017-11-26] MEDS ORDERED: SPRITAM250 MG PO (21:34)
== END 2017-11-26 13:05 | disposition home or self-care (01) | DRG 101 ==
LOC: EME 15:17 → 3EAST 20:53 → EDOF 20:53 → ENRESERV 20:58 → 3EAST 22:32
PROVIDERS: Emergency Medicine; Hospitalist
DX: G40.909 Epilepsy, unspecified, not intractable, without status epilepticus (principal); G35 Multiple sclerosis; J45.909 Unspecified asthma, uncomplicated; F17.200 Nicotine dependence, unspecified, uncomplicated; I95.9 Hypotension, unspecified
CPT/HCPCS: 80048; 80053; 80076; 80164; 81003; 83605; 84702; 84999; 85027; 94799; 95819; 99281; 99285; G0480; J1650; J7030

== ENCOUNTER 2017-11-26 17:28 | Inpatient (IN) | payer OTHER ==
[~2017-11-26] VITALS: Ht 162.6 cm; Wt 70.7 kg
[~2017-11-26 17:28] MED LIST changes: +ACIDOPHILUS1 EAC3 PO; +MIDODRINE HCL5 MG PO; +NICOTINE PATCH1 EAC1 TD; +PRIMIDONE50 MG PO; +RIZATRIPTAN10 MG PO
[2017-11-26 18:43] LABS: HEMOGLOBIN 12.7 G/DL (11.9-15.5); MCH 28.9 PG (29.0-34.0); MCHC 32.6 G/DL (30.0-36.0); MCV 88.6 FL (83-99); NRBC (%) 0.3 /100 WBC (0-0); PLATELET COUNT 104 K/uL (156-360); RBC DIS.WIDTH-CV 13.3 % (11.8-14.6); RBC DIS.WIDTH-SD 43.4 % (39-53); WHITE BLOOD COUNT 6.8 K/uL (4.1-10.2)
[2017-11-26 18:51] LABS: CHLORIDE 110 mEq/L (99-109); POTASSIUM 3.8 mEq/L (3.7-5.4); SODIUM 140 mEq/L (136-147)
[2017-11-26 18:53] LABS: GLUCOSE 70 mg/dL (70-99)
[2017-11-26 18:57] LABS: CREATININE 0.9 mg/dL (0.6-1.3); GFR ESTIMATE (CALCULATED) > 59 mL/min/; UREA NITROGEN (BUN) 9 mg/dL (9-23)
[2017-11-26 19:18] LABS: VALPROIC ACID (DEPAKOTE) 114.6 MCG/ML (50-100)
[2017-11-26] MEDS ORDERED: SPRITAM250 MG PO (21:34)
[2017-11-26 23:36] LABS: HEMOGLOBIN 11.5 G/DL (11.9-15.5); MCH 29.6 PG (29.0-34.0); MCHC 32.9 G/DL (30.0-36.0); NRBC (%) 0.5 /100 WBC (0-0); PLATELET COUNT 91 K/uL (156-360); RBC DIS.WIDTH-CV 13.4 % (11.8-14.6); RBC DIS.WIDTH-SD 44.2 % (39-53); RED BLOOD COUNT 3.89 M/uL (3.80-5.20); WHITE BLOOD COUNT 6.5 K/uL (4.1-10.2)
[2017-11-26 23:44] LABS: ALBUMIN 3.1 g/dL (3.2-4.8); CHLORIDE 116 mEq/L (99-109); POTASSIUM 3.7 mEq/L (3.7-5.4); SODIUM 142 mEq/L (136-147)
[2017-11-26 23:47] LABS: GLUCOSE 83 mg/dL (70-99); TOTAL PROTEIN 4.8 g/dL (6.4-8.3)
[2017-11-26 23:48] LABS: TOTAL BILIRUBIN 0.3 mg/dL (0.0-1.0)
[2017-11-26 23:50] LABS: ALKALINE PHOSPHATASE 45 IU/L (3-129); CREATININE 0.8 mg/dL (0.6-1.3); GFR ESTIMATE (CALCULATED) > 59 mL/min/
[2017-11-26 23:51] LABS: UREA NITROGEN (BUN) 10 mg/dL (9-23)
[2017-11-26 23:52] LABS: AST (GOT) 7 IU/L (2-34)
[2017-11-26 23:53] LABS: ALT (GPT) 6 IU/L (3-49)
[2017-11-27 00:20] VITALS: BP 88/56
[2017-11-27 06:44] LABS: HEMATOCRIT 32.4 % (36.0-46.0); HEMOGLOBIN 10.6 G/DL (11.9-15.5); MCH 29.1 PG (29.0-34.0); MCHC 32.7 G/DL (30.0-36.0); NRBC (%) 0.4 /100 WBC (0-0); PLATELET COUNT 87 K/uL (156-360); RBC DIS.WIDTH-CV 13.4 % (11.8-14.6); RBC DIS.WIDTH-SD 44.2 % (39-53); RED BLOOD COUNT 3.64 M/uL (3.80-5.20); WHITE BLOOD COUNT 5.4 K/uL (4.1-10.2)
[2017-11-27 07:00] LABS: APPEARANCE CLEAR ((CLEAR)); BILIRUBIN NEGATIVE; BLOOD NEGATIVE; COLOR STRAW ((YELLOW)); GLUCOSE (STRIP) NEGATIVE; KETONES NEGATIVE; LEUKOCYTES NEGATIVE; NITRITE NEGATIVE; PROTEIN (STRIP) NEGATIVE; SPECIFIC GRAVITY 1.009 (1.000-1.030); UCUL ADDED? NO; UROBILINOGEN 0.2 MG/DL (0.2-1.0)
[2017-11-27 07:00] LABS: ALBUMIN 2.8 G/DL (3.2-4.8); ALKALINE PHOSPHATASE 35 IU/L (3-129); ALT (GPT) 4 IU/L (3-49); AST (GOT) < 7 IU/L (2-34); CHLORIDE 115 MEQ/L (99-109); CREATININE 0.8 MG/DL (0.6-1.3); DIRECT BILIRUBIN 0.1 mg/dL (0.0-0.3); GFR ESTIMATE (CALCULATED) > 59 mL/min/; GLUCOSE 83 mg/dL (70-99); POTASSIUM 3.8 MEQ/L (3.7-5.4); SODIUM 143 MEQ/L (136-147); TOTAL BILIRUBIN 0.3 MG/DL (0.0-1.0); TOTAL PROTEIN 4.2 G/DL (6.4-8.3); UREA NITROGEN (BUN) 8 mg/dL (9-23)
[2017-11-27 07:33] VITALS: BP 93/58
[2017-11-27 08:15] LABS: PROLACTIN 21.4 NG/ML
[2017-11-27 16:22] VITALS: BP 98/60
[2017-11-27 19:16] VITALS: BP 111/67
[2017-11-28 00:09] VITALS: BP 88/50
[2017-11-28 03:59] VITALS: BP 86/52
[2017-11-28 07:14] VITALS: BP 84/47
[2017-11-28] MEDS ORDERED: DEPAKENE250 MG PO (10:21)
[2017-11-28] MEDS ORDERED: LEVETIRACETAM750 MG PO (10:21)
== END 2017-11-28 12:06 | disposition home or self-care (01) | DRG 101 ==
LOC: EME 17:28 → EDOF 21:59 → 5SOUTH 11-27 00:16
PROVIDERS: Emergency Medicine; Hospitalist
DX: G40.919 Epilepsy, unspecified, intractable, without status epilepticus (principal); G35 Multiple sclerosis; D69.6 Thrombocytopenia, unspecified; J45.909 Unspecified asthma, uncomplicated; G89.29 Other chronic pain; I95.89 Other hypotension; K21.9 Gastro-esophageal reflux disease without esophagitis; F10.10 Alcohol abuse, uncomplicated; F17.200 Nicotine dependence, unspecified, uncomplicated; G25.2 Other specified forms of tremor; Z83.3 Family history of diabetes mellitus; Z85.43 Personal history of malignant neoplasm of ovary; Z82.49 Family history of ischemic heart disease and other diseases of the circulatory system
CPT/HCPCS: 70551; 71045; 80048; 80053; 80164; 80175 90; 81003; 82140; 82248; 82330; 82948; 83605; 84146; 85027; 87040; 99281; 99285; J1650; J1953; J7030; J7050; J7120

== ENCOUNTER 2017-12-02 20:33 | Emergency (ER) | payer OTHER ==
[~2017-12-02] VITALS: Ht 162.6 cm; Wt 63.6 kg
[~2017-12-02 20:33] MED LIST changes: +SPRITAM250 MG PO
[2017-12-02 20:37] VITALS: BP 88/70
== END 2017-12-03 01:14 | disposition home or self-care (01) ==
LOC: EME 20:33
DX: G40.909 Epilepsy, unspecified, not intractable, without status epilepticus (principal); S80.01XA Contusion of right knee, initial encounter; W22.8XXA Striking against or struck by other objects, initial encounter; F17.200 Nicotine dependence, unspecified, uncomplicated
CPT/HCPCS: 73564; 99281; 99284